=== PATIENT | male | born 1970 | race Caucasian/White ===

== ENCOUNTER 2024-04-11 00:58 | Emergency (ER) | payer MEDICAID, OTHER ==
[~2024-04-11] VITALS: Ht 175.3 cm; Wt 75.7 kg
[2024-04-11 01:05] VITALS: BP_SYST 134; PULSE 58; RESP 20; TEMP 98; O2SAT 98
[2024-04-11 01:43] LABS: BILIRUBIN,URINE NEGATIVE (NEGATIVE); CLARITY/URINE CLEAR (CLEAR); COLOR,URINE YELLOW (YELLOW); GLUCOSE,URINE 3+ (NEGATIVE); KETONES,URINE TRACE (NEGATIVE); LEUKOCYTE ESTERASE ,URINE NEGATIVE (NEGATIVE); NITRITE, URINE NEGATIVE (NEGATIVE); PROTEIN URINE TRACE (NEGATIVE); UROBILINOGEN,URINE 0.2 (0.2-1.0)
[2024-04-11 02:19] LABS: BLOOD, URINE TRACE (NEGATIVE)
[2024-04-11 02:55] LABS: BACTERIA,URINE RARE /HPF (None Seen)
[2024-04-11 03:12] LABS: BASOPHILS # (AUTO) 0.1 K/uL (0.0-0.2); BASOPHILS % (AUTO) 0.5 % (0.0-2.0); EOSINOPHILS # (AUTO) 0.2 K/uL (0.0-0.4); EOSINOPHILS % (AUTO) 1.7 % (0.0-4.0); HEMATOCRIT 41.2 % (36-54); HEMOGLOBIN 14.1 g/dL (14.0-18.0); LYMPHOCYTES # (AUTO) 1.8 K/uL (1.0-5.5); LYMPHOCYTES % (AUTO) 15.4 % (20.5-51.5); MEAN CORPUSCULAR HEMOGLOBIN 33 pg (27-31); MEAN CORPUSCULAR HGB CONC 34 % (32-36); MEAN CORPUSCULAR VOLUME 95 fL (79.0-98.0); MONOCYTES % (AUTO) 8.7 % (1.7-9.3); NEUTROPHILS # (AUTO) 8.4 K/uL (1.8-7.7); NEUTROPHILS % (AUTO) 73.7 % (40.0-70.0); PLATELET COUNT (AUTO) 327 K/uL (130-430); RED BLOOD CELL COUNT(AUTO) 4.35 MIL/uL (4.2-6.2); RED CELL DISTRIBUTION WIDTH 12.2 % (9.0-15.0); WHITE BLOOD COUNT (AUTO) 11.4 K/uL (4.8-10.8)
[2024-04-11] MEDS: INSULIN REGULAR, HUMAN 100 UNITS/ML, 3 ML VIAL IV ONE (03:12)
[2024-04-11] MEDS: NACL 0.9% 1,000 ML IV ONE (03:13)
[2024-04-11] MEDS ORDERED: INSULIN REGULAR, HUMAN 10 UNITS/0.1 ML, 3 ML VIAL ONE (03:16)
[2024-04-11 03:29] LABS: ALBUMIN 3.5 g/dL (3.4-4.8); BILIRUBIN,DIRECT 0.2 mg/dL (0.0-0.3); CALCIUM 9.2 mg/dL (8.4-11.0); CREATININE 1.28 mg/dL (0.55-1.30); TOTAL BILIRUBIN 0.6 mg/dL (0.0-1.0); TOTAL PROTEIN, SERUM 7.8 g/dL (6.4-8.3)
[2024-04-11] MEDS: MORPHINE 4 MG INJ. 4 MG/ML VIAL IVP ONE (03:52)
[2024-04-11] MEDS ORDERED: GLIP10TA11 PO ×2 (04:38→15:05)
[2024-04-11] MEDS ORDERED: INSU100I4 SUBQ ×2 (04:38→15:05)
[2024-04-11] MEDS ORDERED: INSU100V9 SQ ×2 (04:38→15:05)
[2024-04-11 04:45] VITALS: BP_SYST 127; PULSE 66; RESP 18; TEMP 98; O2SAT 99
== END 2024-04-11 04:54 | disposition home or self-care (01) ==
LOC: SED 00:58
DX: R10.9 Unspecified abdominal pain (principal); R50.9 Fever, unspecified; E11.9 Type 2 diabetes mellitus without complications; Z76.0 Encounter for issue of repeat prescription; Z88.0 Allergy status to penicillin
CPT/HCPCS: 99284; 96374; 96361; 96375; 80076; 80048; 81001; 85025; 36415; 82948; J1815; J2270; J7030; 81000; 81015

== ENCOUNTER 2024-04-17 19:32 | Emergency (ER) | payer MEDICAID ==
[~2024-04-17] VITALS: Ht 175.3 cm; Wt 68.0 kg
[~2024-04-17 19:32] MED LIST: GLIP10TA11 PO; INSU100I4 SUBQ; INSU100V9 SQ
[2024-04-17 19:49] VITALS: BP_SYST 136; PULSE 96; RESP 18; TEMP 98.1; O2SAT 97
[2024-04-17] MEDS ORDERED: CEPH-548 PO (21:00)
[2024-04-17] MEDS: BACITRACIN 1 GM OINT TP ONE (21:22)
[2024-04-17 21:57] VITALS: BP_SYST 136; PULSE 96; RESP 18; TEMP 98.1; O2SAT 97
== END 2024-04-17 21:57 | disposition home or self-care (01) ==
LOC: SED 19:32
DX: L02.414 Cutaneous abscess of left upper limb (principal); Z88.0 Allergy status to penicillin; Z79.4 Long term (current) use of insulin
CPT/HCPCS: 99283

== ENCOUNTER 2024-04-19 17:13 | Emergency (ER) | payer MEDICAID ==
[~2024-04-19] VITALS: Ht 175.3 cm; Wt 68.0 kg
[~2024-04-19 17:13] MED LIST changes: +CEPH-548 PO
[2024-04-19 17:23] VITALS: BP_SYST 148; PULSE 83; RESP 16; TEMP 97.3; O2SAT 99
[2024-04-19 19:38] VITALS: BP_SYST 148; PULSE 83; RESP 16; TEMP 97.3; O2SAT 99
== END 2024-04-19 19:38 | disposition home or self-care (01) ==
LOC: SED 17:13
DX: Z48.00 Encounter for change or removal of nonsurgical wound dressing (principal); Z88.0 Allergy status to penicillin
CPT/HCPCS: 99281